=== PATIENT | female | born 1975 ===

== ENCOUNTER 2016-11-11 01:45 | Inpatient (IN) | payer MEDICAID, SELFPAY ==
[2016-11-11 02:47] VITALS: BMI 27.1
[2016-11-11] MEDS: Lactated Ringer's 1,000 ML IV SCH ×2 (03:30→10:52)
[2016-11-11 03:40] VITALS: BP 122/64; PULSE 81; RESP 18; TEMP 98.5; O2SAT 100
[2016-11-11 05:40] LABS: BASO % 0.4 % (0.0-2.0); EOS # 0.1 K/uL (0.0-0.7); EOS % 1.6 % (0.0-4.0); HEMATOCRIT 39.7 % (34.0-47.0); LYMPH # 2.3 K/uL (1.0-4.3); LYMPH % 24.9 % (20.0-40.0); MEAN CORPUSCULAR HEMOGLOBIN 30.5 pg (27.0-31.0); MEAN CORPUSCULAR HGB CONC 33.6 g/dL (33.0-37.0); MEAN PLATELET VOLUME 11.1 fl (7.2-11.7); MONO # 0.8 K/uL (0.0-0.8); MONO % 8.4 % (0.0-10.0); NEUT # 6.1 K/uL (1.8-7.0); NEUT % 64.7 % (50.0-75.0); NRBC % 0.1 % (0.0-0.0); WHITE BLOOD COUNT 9.4 K/uL (4.8-10.8)
[2016-11-11] MEDS ORDERED: Lidocaine 1% Inj (20ml) ONE (06:18)
[2016-11-11] MEDS ORDERED: Oxytocin 30 units/LR 500ML 30 U/500 ML BAG IV ONE ×2 (07:44→08:55)
[2016-11-11] MEDS ORDERED: Oxycodone/Acetaminophen 5/325 mg Tab PO PRN (08:23)
--- NOTE | 2016-11-11 08:41 | OBDS ---
DELIVERY PERSONNEL Delivery Doctor: Yvrose Cohen MD Garment Sorter: Rubia Toribio RN Resident: Dr Kimmy MATERNAL INFORMATION Estimated Blood Loss (ml): 250 Provider Comments: delivery note Ap Dx: PPROM; PTL; 34.2wks; Probable Down Syndrome Pp Dx: same procedure: ob: [place] resident: irving chiu pgy1 anesth: none [id number] plac to path complic none findings: viable female; 5lb2oz; 9_9 pt remained in br; to special care nursery LABOR SUMMARY EDC: 12/21/2016 00:00 No. Babies in Womb: 0 Attempted: No Labor Anesthesia: None LABOR INFORMATION Complete Dilatation: 11/11/2016 06:50 Group B Beta Strep: Not Done Antibiotics # of Doses: 0 Antibiotics Time of Last Dose: 0 MEMBRANES Membranes Rupture Method: Spontaneous Rupture of Membranes: 11/11/2016 00:01 Length of Rupture (hrs): 8.22 Amniotic Fluid Color: Clear Amniotic Fluid Amount: Moderate Amniotic Fluid Odor: Normal STAGES OF LABOR Stage 2 hrs: 1 Stage 2 min: 24 Stage 3 hrs: 0 Stage 3 min: 6 VAGINAL DELIVERY Episiotomy: None Laceration Extension: N/A Laceration Type: None BABY A INFORMATION Infant Delivery Date/Time: 11/11/2016 08:14 Method of Delivery: Vaginal Born in Route : No : N/A Forceps: N/A SHOULDER DYSTOCIA BABY A Delivery Date/Time: 11/11/2016 08:14 PRESENTATION/POSITION BABY A Presentation: Cephalic Cephalic Presentation: Vertex Breech Presentation: N/A PLACENTA INFORMATION BABY A Placenta Delivery Time : 11/11/2016 08:20 Placenta Method of Delivery: Spontaneous Placenta Status: Delivered INFORMATION BABY A Gestational Age at Delivery: 34.0 Gestational Status: Outcome : Liveborn Condition : Stable
[2016-11-11] MEDS ORDERED: Gentamicin 80mg/50ml NS 80 MG/50 ML BAG IVPB SCH (09:00)
[2016-11-11] MEDS: Oxycodone/Acetaminophen 5/325 mg Tab PO PRN ×2 (09:10→14:51)
[2016-11-12 06:10] LABS: HEMATOCRIT 38.3 % (34.0-47.0); MEAN CORPUSCULAR HEMOGLOBIN 30.8 pg (27.0-31.0); MEAN CORPUSCULAR HGB CONC 33.8 g/dL (33.0-37.0); RED CELL DISTRIBUTION WIDTH 14.2 % (11.5-14.5); WHITE BLOOD COUNT 11.2 K/uL (4.8-10.8)
[2016-11-12] MEDS: Oxycodone/Acetaminophen 5/325 mg Tab PO PRN ×2 (07:47→15:56)
--- NOTE | 2016-11-12 11:01 | OBPPN ---
Datetime: 11/12/2016 06:11 PP Pain Prov: Within normal limits PP Nausea Prov: Denies PP Flatus Prov: Yes PP BM Prov: Yes PP Breasts Prov: Normal PP Heart Prov: Normal PP Lungs Prov: Normal PP Abdomen/Uterus Prov: Normal PP Lochia Prov: Normal PP Vulva/Perineum Prov: Normal PP CVA Tenderness Prov: Normal PP Extremities Prov: Normal PP C/S Incision Prov: Not Applicable PP Progress Prov: Normal PP Comments Phys Exam Prov: abd: soft, NT, ND, +BS. Fundus firm below level of umbilicus ext: NT, no edema, homans neg PP Impression Prov: Normal progression PP Plan Prov: Continue present management PP Progress Note Prov: pt seen and examined at bedside. Patient had uneventful overnight. Patient reports mild pelvic pain controlled w/ pain meds. OOB/Ambulating w/o dizziness. Breast/bottle feedi ng w/o difficulty. Tolerating PO diet well. Lochia is less than menses in volume. Voiding freely w / no blood noted. Reports no bowel movement. Denies fevers, chills, n/v/d, CP/SOB, lightheadedness and calf pain. A/P: 40 y/o s/p on 11/11/2016 doing well on PPD#1. -continue current management -f/u fasting blood sugar levels -Ibuprofen 600 mg 1 tab Q6h PO prn for mild pain. -Encourage breast feeding and ambulation. -Anticipate DC 11/13 Neto Olsen MD PGY1 @ 6:12am The patient was seen with the resident and I agree with the notes Vital Signs Provider PP: Reviewed; Within Normal Limits
--- NOTE | 2016-11-13 10:40 | OBPPN ---
Datetime: 11/13/2016 05:51 PP Pain Prov: Within normal limits PP Nausea Prov: Denies PP Flatus Prov: Yes PP BM Prov: Yes PP Breasts Prov: Normal PP Heart Prov: Normal PP Lungs Prov: Normal PP Abdomen/Uterus Prov: Normal PP Lochia Prov: Normal PP Vulva/Perineum Prov: Normal PP CVA Tenderness Prov: Normal PP Extremities Prov: Normal PP C/S Incision Prov: Not Applicable PP Progress Prov: Normal PP Comments Phys Exam Prov: abd: +bs, soft, NT, ND. Fundus firm below level of umbilicus PP Impression Prov: Normal progression PP Plan Prov: Discharge PP Progress Note Prov: pt seen and examined at bedside. Patient had uneventful overnight. Patient reports mild pelvic pain controlled w/ pain meds. OOB/Ambulating w/o dizziness. Breast/bottle feedi ng w/o difficulty. Tolerating PO diet well. Lochia is less than menses in volume. Voiding freely w / no blood noted. +BM, Denies fevers, chills, n/v/d, CP/SOB, lightheadedness and calf pain. A/P: 40 y/o s/p on 11/11/2016 doing well on PPD#2. -DC today -Ibuprofen 600 mg 1 tab Q6h PO prn for mild pain. -Encourage breast feeding and ambulation. Neto Olsen MD PGY1 @ 5:51am [facility] ADDENDUM: pt seen _ examined by me. agree with above assessment and plan. Vital Signs Provider PP: Reviewed; Within Normal Limits
--- NOTE | 2016-11-13 10:41 | OBDCSUM ---
Datetime: 11/13/2016 05:53 Discharged to, Provider: Home Follow up at, Provider: [facility] Disch Instr Activity: Normal activity Disch Instr Diet: Regular Discharge Instructions, Provider: Routine instructions given Discharge Diagnosis, Provider: Delivery Discharge Time: 11/13/2016 06:00 Follow up in weeks, Provider: 6 weeks Disch Referrals: None Contraception discussed, Prov: Yes Disch Activity Restrictions: No sexual activity; Nothing in vagina - [place], tampons, douche Contraception after Delivery: Undecided
== END 2016-11-13 14:05 | disposition home or self-care (01) | DRG 775 ==
LOC: H.EROB2 01:45 → H.L&D 02:52 → H.OB/GYN 10:27
PROVIDERS: ADMIT Obstetrics & Gynecology; ATTEND Obstetrics & Gynecology
PROC: 10E0XZZ Delivery of Products of Conception, External Approach (ICD-10-PCS; principal; 2016-11-11)
PROC: 4A1HXCZ Monitoring of Products of Conception, Cardiac Rate, External Approach (ICD-10-PCS; 2016-11-11)
DX: O42.013 Preterm premature rupture of membranes, onset of labor within 24 hours of rupture, third trimester (principal); Z37.0 Single live birth; Z3A.34 34 weeks gestation of pregnancy

== ENCOUNTER 2016-11-18 17:23 | Emergency (ER) | payer MEDICAID, SELFPAY ==
[2016-11-18 17:23] VITALS: BMI 27.1
[2016-11-18 17:32] VITALS: BP 124/75; PULSE 94; RESP 16; TEMP 98; O2SAT 100
[2016-11-18] MEDS ORDERED: Albuterol-Ipratrop 3 mg / 0.5 (3 ml) UD INH STA (17:45)
[2016-11-18] MEDS ORDERED: Albuterol-Ipratrop 3 mg / 0.5 (3 ml) UD ONE (17:56)
--- NOTE | 2016-11-18 18:06 | ED PDOC ---
HPI: General Adult Time Seen by Provider: 11/18/16 17:23 Chief Complaint (Nursing): Cough, Cold, Congestion Chief Complaint (Provider): Cough, Cold, Congestion History Per: Patient History/Exam Limitations: no limitations Onset/Duration Of Symptoms: Days (x4 days) Current Symptoms Are (Timing): Still Present Additional Complaint(s): 40 y/o female presents to the emergency department with a complaint of a cough, sputum (green), itchy throat, and nasal congestion x4 days. States she does have seasonal allergies although symptoms are not similar. Reports she gave 1 week ago and cannot breast feed due to symptoms and was sent to the ER by her PMD. Denies chest pain. Past Medical History Reviewed: Historical Data, Nursing Documentation, Vital Signs Vital Signs: Last Vital Signs Temp 98.0 F 11/18/16 17:29 Pulse 94 H 11/18/16 17:29 Resp 16 11/18/16 17:29 BP 124/75 11/18/16 17:29 Pulse Ox 100 11/18/16 18:36 - Medical History PMH: Depression Denies: Chronic Kidney Disease - Surgical History Surgical History: No Surg Hx - Family History Family History: States: Unknown Family Hx - Social History Current smoker - smoking cessation education provided: No Alcohol: None Drugs: Denies - Home Medications Home Medications: Ambulatory Orders Medication Instructions Recorded Cetirizine HCl [Zyrtec Allergy] 10 mg PO DAILY #10 sgl 05/24/16 Dextromethorphan Polistirex 30 mg PO Q6 PRN #50 ml 05/24/16 [Delsym] No Home Meds 05/24/16 Albuterol HFA [Ventolin HFA 90 2 puff IH [id number] PRN #1 inhaler 11/18/16 mcg/actuation (8 g)] - Allergies Allergies/Adverse Reactions: Allergies Allergy/AdvReac Type Severity Reaction Status Date / Time amoxicillin Allergy RASH Verified 11/18/16 17:29 aspirin Allergy RASH Verified 11/18/16 17:29 citric acid Allergy RASH Verified 11/18/16 17:29 [From [facility]] ibuprofen [From Advil] Allergy RASH Verified 11/18/16 17:29 Penicillins Allergy RASH Verified 11/18/16 17:29 sodium bicarbonate Allergy RASH Verified 11/18/16 17:29 [From [facility]] Review of Systems ROS Statement: Except As Marked, All Systems Reviewed And Found Negative ENT: Positive for: Nose Congestion, Other (itchy throat) Cardiovascular: Negative for: Chest Pain Respiratory: Positive for: Cough, Sputum (Greenish) Physical Exam - Reviewed Nursing Documentation Reviewed: Yes Vital Signs Reviewed: Yes - Physical Exam Appears: Positive for: Non-toxic, No Acute Distress Head Exam: Positive for: ATRAUMATIC, NORMAL INSPECTION, NORMOCEPHALIC Skin: Positive for: Normal Color, Warm, Dry ENT: Positive for: Normal ENT Inspection. Negative for: Pharyngeal Erythema Neck: Positive for: Normal, Supple Cardiovascular/Chest: Positive for: Regular Rate, Rhythm. Negative for: Murmur Respiratory: Positive for: Normal Breath Sounds. Negative for: Accessory Muscle Use, Respiratory Distress Neurologic/Psych: Positive for: Alert, Oriented - ECG O2 Sat by Pulse Oximetry: 100 (RA) Pulse Ox Interpretation: Normal - Progress ED Course And Treament: DUONEB X 1 DOSE WITH MILD IMPROVEMENT Medical Decision Making Medical Decision Making: Time: 17:23 Initial Impression: Cough Initial Plan: --Duoneb 3 ml INH --Peak Flow Pre/Post TX --Revaluation Scribe Attestation: Documented by Lynne Cochran, acting as a scribe for Lluvia Ye PA-C. Provider Scribe Attestation: All medical record entries made by the Scribe were at my direction and personally dictated by me. I have reviewed the chart and agree that the record accurately reflects my personal performance of the history, physical exam, medical decision making, and the department course for this patient. I have also personally directed, reviewed, and agree with the discharge instructions and disposition. Disposition - Clinical Impression Clinical Impression: URI (upper respiratory infection) - Patient ED Disposition Is Patient to be Admitted: No - Disposition [facility]errals: [facility] [Outside] Disposition: Routine/Home Disposition Time: 18:41 Condition: FAIR Prescriptions: Albuterol HFA [Ventolin HFA 90 mcg/actuation (8 g)] 2 puff IH [id number] PRN #1 inhaler PRN Reason: Cough Instructions: Upper Respiratory Infection (ED) Print Language: SERBIAN
== END 2016-11-18 18:53 | disposition home or self-care (01) ==
LOC: H.ER 17:23
DX: J06.9 Acute upper respiratory infection, unspecified (principal)